=== PATIENT | male | born 1990 | race Caucasian/White ===

== ENCOUNTER 2018-02-05 10:15 | Emergency (ER) | payer OTHER ==
[~2018-02-05] VITALS: Ht 180.3 cm; Wt 102.3 kg
[2018-02-05 10:21] VITALS: Ht 180.3 cm; Wt 102.3 kg
[2018-02-05] MEDS ORDERED: MINIPRESS1 MG (10:24)
[2018-02-05] MEDS ORDERED: MINIPRESS1 MG PO (10:25)
[2018-02-05] MEDS ORDERED: HYDROCODON-ACE1 EAC7 PO (11:50)
[2018-02-05 12:12] VITALS: BP 145/99
== END 2018-02-05 12:10 | disposition home or self-care (01) ==
LOC: D.ER 10:15
DX: M54.2 Cervicalgia (principal); M54.16 Radiculopathy, lumbar region; M25.511 Pain in right shoulder; V89.2XXA Person injured in unspecified motor-vehicle accident, traffic, initial encounter; Y93.89 Activity, other specified; Y92.89 Other specified places as the place of occurrence of the external cause